=== PATIENT | female | born 2005 | race Two or more races ===

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

== ENCOUNTER 2025-01-03 14:15 | Outpatient (CLI) | payer OTHER ==
[~2025-01-03 14:15] MED LIST: AMOX1TAB5 PO; PEPCID AC20 MG PO
== END 2025-01-03 14:23 | disposition home or self-care (01) ==
LOC: PRENATAL 14:15
PROVIDERS: ATTEND Obstetrics & Gynecology Maternal & Fetal Medicine
DX: O44.00 Complete placenta previa NOS or without hemorrhage, unspecified trimester (principal); Z3A.19 19 weeks gestation of pregnancy

== ENCOUNTER → 2025-04-03 12:47 | Outpatient (CLI) | payer OTHER | END | disposition home or self-care (01) | LOC: PRENATAL 12:47 | PROVIDERS: ATTEND Obstetrics & Gynecology | DX: O26.849 Uterine size-date discrepancy, unspecified trimester (principal); O36.8199 Decreased fetal movements, unspecified trimester, other fetus ==

== ENCOUNTER → 2025-05-10 14:13 | Outpatient (CLI) | payer OTHER | END | disposition home or self-care (01) | LOC: PRENATAL 14:13 | PROVIDERS: ATTEND Obstetrics & Gynecology Maternal & Fetal Medicine | DX: O26.849 Uterine size-date discrepancy, unspecified trimester (principal); O36.8199 Decreased fetal movements, unspecified trimester, other fetus; O36.5990 Maternal care for other known or suspected poor fetal growth, unspecified trimester, not applicable or unspecified; Z3A.36 36 weeks gestation of pregnancy ==

== ENCOUNTER 2025-05-15 14:20 | Inpatient (IN) | payer OTHER ==
[~2025-05-15] VITALS: Ht 165.1 cm; Wt 59.9 kg
[2025-05-15 14:36] VITALS: BP 128/76
[2025-05-15] MEDS ORDERED: PRENATAL TABLE1 EAC1 (14:48)
[2025-05-15 15:00] LABS: URINE APPEARANCE Clear; URINE BACTERIA 344.4 uL (0.0-1933); URINE BILIRRUBIN Negative (NEGATIVE); URINE BLOOD Negative; URINE COLOR Yellow; URINE EPITHELIAL CELLS 4.1 uL (0.0-38.8); URINE GLUCOSE Negative (NEGATIVE); URINE KETONE Negative (NEGATIVE); URINE LEUKOCYTE Negative; URINE NITRATE Negative; URINE PROTEIN Negative (NEGATIVE); URINE UROBILINOGEN 1.0 E.U./dl; URINE WBC 10.7 uL (0.0-23.2)
[2025-05-15] MEDS ORDERED: RINGERS SOLUTION,LACTATED 1,000 ML IV SCH (15:00)
[2025-05-15 15:08] LABS: BASO % 0.2 % (0.1-1.2); EOS # 0.01 (0.04-0.54); EOS % 0.1 % (0.7-7.0); LYMPH # 1.03 (1.18-3.74); LYMPH % 12.4 % (19.3-53.1); MEAN PLATELET VOLUME 11.20 fl (9.4-12.4); MONO # 0.63 (0.24-0.82); MONO % 7.6 % (4.7-12.5); NEUT # 6.57 (1.56-6.13); NEUT % 79.3 % (34.0-71.1); RED CELL DISTRIBUTION WIDTH 12.2 % (11.6-14.4)
[2025-05-15 15:09] LABS: URINE CAST 0.00 uL (0.0-1.40); URINE RBC 0.5 uL (0.0-20.8)
[2025-05-15 15:15] VITALS: BP 125/67
[2025-05-15 15:25] LABS: INR < 0.93
[2025-05-15 15:37] LABS: ALT/SGPT 10.0 U/L (12-78); AST/SGOT 20.0 U/L (15-37); BILIRUBIN TOTAL 0.32 mg/dL (0.3-1.2); BUN CREA RATIO 10.0 (7.0-25.0); CREATININE SERUM 0.68 mg/dL (0.55-1.02); GFR 111.46; GLOBULINA 3.7 G/DL (2.4-3.5); GLUCOSE FASTING 88.0 mg/dL (65-100); OSMOLALITY SERUM 273.0 MOSM/KG (275-295)
[2025-05-15 19:52] VITALS: BP 123/65
[2025-05-15 23:22] VITALS: BP 112/55; O2SAT 100
[2025-05-16] VITALS (8 sets, daily range): BP systolic 115–136; BP diastolic 65–80
[2025-05-16] MEDS ORDERED: OXYTOCIN 20 UNITS/500ML RL PIGGYBAG IV ONE (06:36)
[2025-05-16] MEDS ORDERED: OXYTOCIN 500 ML IV SCH (06:45)
[2025-05-16] MEDS ORDERED: LIDOCAINE HCL 1% 10ML VIAL ONE (08:21)
[2025-05-16] MEDS ORDERED: OXYTOCIN 20 UNITS/1000ML RL PIGGYBAG IV ONE (08:21)
[2025-05-16] MEDS ORDERED: CHLORHEXIDINE GLUCONATE 120 ML BOTTLE TOP ONE (08:21)
[2025-05-16] MEDS ORDERED: CHLORHEXIDINE GLUCONATE 120 ML BOTTLE TOP SCH (09:15)
[2025-05-16] MEDS ORDERED: OXYTOCIN 1,000 ML IV SCH (09:15)
[2025-05-16] MEDS ORDERED: LIDOCAINE HCL 1% 10ML VIAL IJ ONE (10:00)
[2025-05-16] MEDS ORDERED: ERYTHROMYCIN BASE OPHT 1GM EACH TUBE OP ONE (10:00)
[2025-05-17 00:39] VITALS: BP 117/71
[2025-05-17 06:55] LABS: BASO % 0.2 % (0.1-1.2); EOS # 0.03 (0.04-0.54); EOS % 0.3 % (0.7-7.0); LYMPH # 1.78 (1.18-3.74); LYMPH % 18.1 % (19.3-53.1); MEAN PLATELET VOLUME 11.60 fl (9.4-12.4); MONO # 0.70 (0.24-0.82); MONO % 7.1 % (4.7-12.5); NEUT # 7.27 (1.56-6.13); NEUT % 73.7 % (34.0-71.1); RED CELL DISTRIBUTION WIDTH 12.1 % (11.6-14.4)
[2025-05-17 08:00] VITALS: BP 102/63
[2025-05-17] MEDS ORDERED: FERROUS SULFATE 325 MG TABLET.EC PO NR (10:40)
[2025-05-17] MEDS ORDERED: FERROUS SULFATE 325 MG TABLET.EC PO SCH (17:00)
[2025-05-17 19:23] VITALS: BP 123/79
[2025-05-18 00:30] VITALS: BP 107/62
[2025-05-18 08:00] VITALS: BP 109/73
== END 2025-05-18 15:56 | disposition home or self-care (01) | DRG 806 ==
LOC: LDR 14:20 → OB/GYN 05-16 09:54
PROVIDERS: ADMIT Obstetrics & Gynecology; ATTEND Obstetrics & Gynecology
PROC: 4A1HXCZ Monitoring of Products of Conception, Cardiac Rate, External Approach (ICD-10-PCS; 2025-05-15)
PROC: 10E0XZZ Delivery of Products of Conception, External Approach (ICD-10-PCS; principal; 2025-05-16)
PROC: 0W8NXZZ Division of Female Perineum, External Approach (ICD-10-PCS; 2025-05-16)
PROC: 0UQMXZZ Repair Vulva, External Approach (ICD-10-PCS; 2025-05-16)
PROC: 3E033VJ Introduction of Other Hormone into Peripheral Vein, Percutaneous Approach (ICD-10-PCS; 2025-05-16)
DX: O71.82 Other specified trauma to perineum and vulva (principal); O36.0930 Maternal care for other rhesus isoimmunization, third trimester, not applicable or unspecified; Z37.0 Single live birth; O41.03X0 Oligohydramnios, third trimester, not applicable or unspecified; Z3A.38 38 weeks gestation of pregnancy; O36.5930 Maternal care for other known or suspected poor fetal growth, third trimester, not applicable or unspecified